=== PATIENT | male | born 1975 | race Caucasian/White ===

== ENCOUNTER 2016-11-10 20:34 | Emergency (ER) | payer OTHER ==
[~2016-11-10] VITALS: Ht 188 cm; Wt 90.7 kg
[2016-11-10 20:41] VITALS: BP 134/82
--- NOTE | 2016-11-10 22:00 | ED UPPER/LOWER EXTREMITY COMPL ---
History of Present Illness General Chief Complaint: Lower Extremity Problems Stated Complaint: PT RT LEG HAS PAIN Source: patient Exam Limitations: no limitations Vital Signs & Intake/Output Vital Signs & Intake/Output Vital Signs Date Time Temp Pulse Resp B/P B/P Pulse O2 O2 Flow FiO2 Mean Ox Delivery Rate 11/10 2040 98.5 73 16 134/82 99 Room Air ED Intake and Output 11/11 0000 11/10 1200 Intake Total Output Total Balance Patient 200 lb Weight Weight Reported by Patient Measurement Method Allergies Coded Allergies: No Known Allergies (11/10/16) Reconcile Medications Cyclobenzaprine HCl 5 MG TABLET 1 TAB PO TIDPRN pain Ibuprofen 800 MG TABLET 1 TAB PO TID pain Triage Note: TRIAGE: PT TO ED WITH RIGHT CALF PAIN S/P RUNNING AND FEELING A POP, STATING IT FELT LIKE SOMEONE THREW A BASEBALL AT IT. DECLINES PAIN MEDS OFFERED IN TRIAGE. NO SIGNIFICANT SWELLING OR REDNESS NOTED. ABLE TO BEAR MINIMAL AMOUNT OF WEIGHT, DECLINES WHEELCHAIR OFFERED. Triage Nurses Notes Reviewed? yes Onset: Abrupt Duration: hour(s): (2-3), constant, continues in ED, getting worse Timing: single episode today Severity: mild, moderate Severity Numbers: 7 Pain/Injury Location: Right: Leg. Method of Injury: sports injury No Modifying Factors: none Associated Symptoms: none HPI: 41-year-old male with no sensory past medical history presents complainingof pain in his right lower leg. Patient reports the pain started suddenly while he was running while playing baseball. He felt a pop in his calf and reports "it felt like someone threw a baseball into me". Patient describes the pain as a spasm in feel like the muscle is "balling up". Pain is worse with any type of movement but the patient is able to bear weight. He is not taking any medication for the pain. He denies any previous injury to the lower extremity. He denies any previous trauma, surgery, testosterone use, previous history of blood clots. Patient rates the pain as a 7 out of 10. Denies any other injuries, he did not fall. (CLARE ALDANA PA-C) Past History Travel History Traveled to [place] past 21 day No Medical History Any Pertinent Medical History? see below for history Neurological: NONE EENT: NONE Cardiovascular: NONE Respiratory: NONE Gastrointestinal: NONE Hepatic: NONE Renal: NONE Musculoskeletal: NONE Psychiatric: NONE Endocrine: NONE Blood Disorders: NONE Cancer(s): NONE Surgical History Surgical History: none Psychosocial History What is your primary language Bahamian Tobacco Use: Never used ETOH Use: denies use Illicit Drug Use: denies illicit drug use Family History Hx Contributory? No (CLARE ALDANA PA-C) Review of Systems Review of Systems Constitutional: Reports: no symptoms. EENTM: Reports: no symptoms. Respiratory: Reports: no symptoms. Cardiovascular: Reports: no symptoms. Gastrointestinal/Abdominal: Reports: no symptoms. Genitourinary: Reports: no symptoms. Musculoskeletal: Reports: see HPI, muscle pain (RLE), muscle stiffness (RLE). Skin: Reports: no symptoms. Neurological/Psychological: Reports: no symptoms. Hematologic/Endocrine: Reports: no symptoms. Immunological: Reports: no symptoms. All Other Systems: Reviewed and Negative (JOVAN VO,CLARE) Physical Exam Physical Exam General Appearance: well developed/nourished, no apparent distress, alert, awake Comments: Well-developed well-nourished person in no acute distress HEENT: Normal EENT exam, extraocular motion intact, no nystagmus. Pupils equally round and reactive to light and accommodation. Nose is atraumatic. External auditory canal and Tympanic membranes clear. Pharynx normal. No swelling or edema. Neck: Supple, no lymphadenopathy, normal range of motion without pain or tenderness Back: Nontender, no CVA tenderness. Full range of motion Cardiovascular: Regular rate and rhythms no murmurs rubs or gallops, normal JVP Respiratory: Chest nontender. No respiratory distress.breath sounds clear to auscultation bilaterally Abdomen: Soft, nontender nondistended, no appreciable organomegaly. Normal bowel sounds. No ascites Right lower extremity: Pain with palpation of the right medial calf and anterior lower leg. Pain reproducible with dorsiflexion and plantarflexion of the right ankle. No swelling or erythema. No bruising. Neurovascular supply is intact. Full range of motion of the right lower extremity is intact. Neuro: Alert oriented x3, motor sensory normal, cranial nerves II through XII grossly intact. Skin: No appreciable rash on exposed skin, skin is warm and dry. Psych: Mood and affect is normal, memory and judgment is normal. (JOVAN VO,CLARE) Progress Differential Diagnosis: cellulitis, contusion, DVT, fracture, gout, sprain, tendon injury Plan of Care: Orders Procedure Date/time Status Durable Medical Equipment 11/10 2201 Active No DVT risk factors. Suspect that this is a muscle spasm. No direct trauma to the area. No swelling or erythema. Pain is reproducible. Achilles tendon is intact. Patient will be discharged home with ibuprofen, crutches, and cyclobenzaprine. Advised patient to drink plenty of fluids and electrolytes. Patient will follow up with his primary care doctor tomorrow. Patient is nontoxic-appearing at discharge and he is in agreement with the plan. (JOVAN VO,CLARE) Departure Departure Disposition: HOME OR SELF CARE Condition: Stable Clinical Impression Primary Impression: Pain of right lower leg Referrals: PATIENT HAS NO PRIMARY CARE DR (PCP/Family) Additional Instructions: Rest, avoid excessive physical activity or weightbearing. Use ibuprofen 800 mg every 8 hours with food. Sycomata saphenous a muscle relaxer that can also be used every 8 hours. This may cause drowsiness. Make a follow-up appt with a primary care doctor in the next couple days. Return to emergency room if any concerns. Please go over all results of today's visit with your primary care doctor. Contact your primary care doctor to let them know you were here in the emergency room. There may be nonspecific findings which may not be related to your visit today here in the emergency room but may require further evaluation and chronic monitoring by your primary care doctor. If you had a laceration today the chance of foreign body always remains. You should follow-up with your primary care doctor for recheck in 3-5 days for a wound check. If you had an x-ray done there is a chance that a fracture could have been missed on initial read and you should follow-up with your primary care doctor for repeat x-rays if symptoms persist. If your blood pressure was elevated here in the emergency room please have rechecked by her primary care doctor within the next 48 hours by your primary care doctor. If you were prescribed a narcotic here in the emergency room or any type of controlled substances you're not allowed to drive while taking this medication or operate any type of heavy machinery. Narcotics can make you feel lightheaded dizziness nausea and can cause constipation. You may need to flower picker a stool softener. Thank you for choosing [facility] emergency room. Please return to the emergency room immediately if you have any other concerns worsening of symptoms. Departure Forms: Customer Survey General Discharge Information Prescriptions: Current Visit Scripts Ibuprofen 1 TAB PO TID #30 TAB Cyclobenzaprine HCl 1 TAB PO TIDPRN #30 TAB (CLARE ALDANA PA-C) PA/[employer] Co-Sign Statement Statement: ED Attending supervision documentation- [] I saw and evaluated the patient. I have also reviewed all the pertinent lab results and diagnostic results. I agree with the findings and the plan of care as documented in the PA's/[employer]'s documentation. [X] I have reviewed the ED Record and agree with the PA's/[employer]'s documentation. [] Additions or exceptions (if any) to the PAs/PA[employer]'s note and plan are summarized below: [] (GARRET SCHOFIELD,SEBAS Lowry)
[2016-11-10] MEDS ORDERED: CYCLOBENZAPRINE5 M2 PO (22:07)
[2016-11-10] MEDS ORDERED: IBUPROFEN800 M1 PO (22:07)
== END 2016-11-10 22:28 ==
LOC: ERH 20:34
DX: M79.604 Pain in right leg (principal)